=== PATIENT | male | born 1995 | race Caucasian/White ===

== ENCOUNTER → 2019-02-04 15:59 | Outpatient (CLI) | payer BC, SELFPAY | PROVIDERS: Family Provider Family Medicine; PCP Family Medicine; Referring Provider Otolaryngology; Visit Provider Otolaryngology | DX: J02.9 Acute pharyngitis, unspecified (principal); K13.79 Other lesions of oral mucosa | CPT/HCPCS: 87070 ==

== ENCOUNTER → 2022-08-14 | Outpatient (CLI) | payer BC, SELFPAY ==
--- NOTE | 2022-08-14 08:20 | TONS_PTH ---
PATIENT: TOÑA BABIN LOC: [facility] U#:[id number] AGE/SX: 26/M ROOM: RE08/14/[address]: Dr. Braxton Haile MD : 1995 BED: DIS: 08/14/2022 SPEC #: [id number] RECD: 08/14/22 15:03 STATUS: TEJAS MARJORIE #: [id number] ROMAINE: 08/14/22 08:[address]: Braxton Haile DEPT: SURGICAL PATHOLOGY RECD BY: Dustin Abrams ENTERED: 08/15/22 08:27 SP TYPE: TONSILS OTHR DR: Dr. Monica Cole MD [facility] Tissues: Tonsil, NOS Procedures: Surgery Specimen Level III HEADER OPERATION: Tonsillectomy PRE-OP DIAGNOSIS: Chronic tonsillitis TISSUE SUBMITTED: Tonsils, right pinned MICROSCOPIC DIAGNOSIS Right and left tonsils, bilateral tonsillectomies: Benign lymphoid follicular hyperplasia, consistent with chronic tonsillitis. Organisms consistent with actinomyces. AM:georgina 08/16/2022 MICROSCOPIC DESCRIPTION Slides are reviewed. GROSS DESCRIPTION Received is one container labeled with the patient's name and designated tonsils - pin on right are two tonsils that in aggregate weigh 21 gm. The right tonsil has a pin on it and measures 4 x 2.5 x 2 cm. The left tonsil measures 4 x 2.5 x 2 cm. Both tonsils are similar in appearance. The external surfaces are pink-lundberg, smooth, glistening and somewhat lobulated. Focally they are hemorrhagic, granular and bear cautery artifact. Serial cross sections through the tonsils reveal normal tonsillar architecture. Sections are submitted in two cassettes as follows: 1 - right tonsil, 2 - left tonsil. / AM:georgina 08/15/2022 TC:5 CPT: 63854 x2
== END | disposition home or self-care (01) ==
LOC: LABSPEC 15:18
PROVIDERS: PCP Family Medicine; Referring Provider Otolaryngology; Visit Provider Otolaryngology
DX: J35.01 Chronic tonsillitis (principal)
CPT/HCPCS: 88304

== ENCOUNTER 2022-08-16 10:21 | Day surgery (SDC) | payer BC, SELFPAY ==
[2022-08-16 11:07] VITALS: BP 152/86; PULSE 79; RESP 18; TEMP 37.2; O2SAT 96; BMI 46.9
[2022-08-16] MEDS: Lactated Ringers 1,000 ML 15 ML IV (11:15)
--- NOTE | 2022-08-16 11:27 | EKG12_ITS ---
Test Reason : PRE OP Blood Pressure : / mmHG Vent. Rate : 079 BPM Atrial Rate : 079 BPM P-R Int : 154 ms QRS Dur : 096 ms QT Int : 392 ms P-R-T Axes : 027 -15 021 degrees QTc Int : 449 ms Normal sinus rhythm Poor R wave progression Confirmed by ROXIE DESAI, JOSE ([id number]), editorial manager ANIL REDDY ([id number]) on 08/17/2022 10:23:13 AM Referred By: Rosalio Haile Confirmed By:JOSE FAUSTIN MD
[2022-08-16 11:56] LABS: Anion Gap 8 (5-15); BUN 15 mg/dL (7-18); BUN/Creat Ratio 10.9 RATIO (10-20); Calcium,Total 9.1 mg/dL (8.5-10.1); Chloride 108 mmol/L (98-107); Creatinine, Serum 1.37 mg/dL (0.70-1.30); EST Glomerular Filtration Rate 67 mL/min (>60); Est Glom Filt Rate - Afr Amer 81 mL/min (>60); Estimated Creatinine Clearance 90.47 ml/min; Glucose 86 mg/dL (74-106); Potassium 3.8 mmol/L (3.5-5.1); Sodium Level 148 mmol/L (136-145)
[2022-08-16 12:10] LABS: Absolute Lymphocyte Count 1.74 X10^3/uL (0.83-4.51); Absolute Neutrophil Count 12.3 X10^3/uL (2.0-7.7); Basophil# 0.06 X10^3/uL; Basophil% 0.4 % (0-1); Eosinophil# 0.22 X10^3/uL; Eosinophils% 1.4 % (0-5); Hematocrit 46.7 % (40-54); Hemoglobin 16.1 g/dL (13.0-16.5); Lymphocyte # 1.74 X10^3/ul (0.83-4.51); Lymphocyte % 11.1 % (19-41); Mean Corp Hgb Conc 34.5 g/dL (32-36); Mean Corpuscular Hgb 29.2 pg (27.0-32.0); Mean Corpuscular Volume 84.8 fL (80-94); Mean Platelet Vol. 9.2 fl (6.2-12.0); Monocyte# 1.18 X10^3/uL; Monocyte% 7.5 % (0-10); NRBC Flagged by Analyzer 0 % (0-5); Neutrophil # 12.26 X10^3/uL (2.7-7.7); Neutrophil % 78.1 % (47-70); Platelet Count 287 K/mm3 (150-450); RBC Distribution Width CV 12.8 % (11.6-14.6); RBC Distribution Width SD 39.5 fl (35.1-43.9); Red Blood Count 5.51 M/mm3 (4.6-6.2); White Blood Count 15.7 K/mm3 (4.4-11.0)
--- NOTE | 2022-08-16 12:34 | DCINST_ITS ---
Discharge Instructions Diet Discharge Diet: Light diet - advance as tolerated Activity Discharge Activity: Return to Normal Activity Dressing / Incision Call your doctor if your incision/area has: Sudden Increased Bleeding Follow Up Care Please Follow Up With: Braxton Haile MD When: 3 weeks as scheduled Test Results: Test results from this visit will be discussed in further detail at your follow- up appointment, if applicable. Discharge Plan Admission Attending Provider: Braxton Haile Primary Care Provider: Venkatesh Yepez Discharge Orders/Prescriptions Prescriptions: No Action oxycodone-acetaminophen 5-325 mg tablet 1 tab PO Q6H PRN (Reason: Pain) Label Comments: take 1 tablet by mouth every 6 hours if needed for pain Referrals / Follow Up: Venkatesh Yepez MD [Primary Care Provider] - Disposition Disposition (needs filled in before D/C Order can be placed): Home, Self Care
--- NOTE | 2022-08-16 12:36 | PCM.OPRPT ---
Problems Associated Problem List Diagnoses (1) Post-tonsillectomy hemorrhage: Report of Operation Date of Procedure: 08/16/22 Pre-Operative Diagnosis: post tonsillectomy hemorrhage Post-Operative Diagnosis: post tonsillectomy hemorrhage Surgery/Procedure Performed:: control post tonsillectomy hemorrhage Surgeon: Braxton Haile Type of Anesthesia: General Description of Procedure: on the day of the procedure, after appropriate informed consent was obtained, the patient was brought to the operating room and placed in supine position on the operating table. he was placed under general endotracheal anesthesia by the anesthesiogist. the endotracheal tube was secured, the eyes were taped. the table was rotated 90 degrees toward the surgeon. a head drape was placed. a abimael jsesica mouthgag was inserted into the oral cavity with care not to damage the lips, teeth or gums. it was suspended from the malagon stand. a red rubber catheter was inserted transnasally to elevate the soft palate. the left tonsillar fossa clot was suctioned and hemostasis was achieved with suction cautery. a valsalva was held by anesthesia and hemostasis was observed bilaterally. he was awoken from anesthesia and transferred to the PACU in stable condition.
[2022-08-16 13:17] VITALS: BP 152/86; BP 166/107; PULSE 82; RESP 18; TEMP 36.8; O2SAT 99
[2022-08-16 13:30] VITALS: BP 152/86; BP 158/107; PULSE 87; RESP 16; O2SAT 94
[2022-08-16 13:46] VITALS: BP 135/78; BP 152/86; PULSE 92; RESP 16; O2SAT 94
[2022-08-16 13:49] VITALS: BP 135/89; BP 152/86; PULSE 94; RESP 18; TEMP 37.2; O2SAT 94
[2022-08-16 14:25] VITALS: BP 152/86
[2022-08-16] MEDS: HYDROcodone Bitartrate/Apap 5/325 Tablet PO (14:25)
== END 2022-08-16 14:31 | disposition home or self-care (01) ==
LOC: SDC 10:27 → AC 10:28
PROVIDERS: Anesthesiology; PCP Family Medicine; Referring Provider Otolaryngology; Visit Provider Otolaryngology
PROC: (CPT 42960; principal; 2022-08-16 12:20)
DX: J35.8 Other chronic diseases of tonsils and adenoids (principal); K91.840 Postprocedural hemorrhage of a digestive system organ or structure following a digestive system procedure; Y83.6 Removal of other organ (partial) (total) as the cause of abnormal reaction of the patient, or of later complication, without mention of misadventure at the time of the procedure; J35.01 Chronic tonsillitis
CPT/HCPCS: 42960; 00170; 80048; 85025; 93005; J7120; J2405